=== PATIENT | female | born 1990 | race Caucasian/White ===

== ENCOUNTER 2017-06-15 08:57 | Emergency (ER) | END 2017-06-15 10:41 | disposition home or self-care (01) ==

== ENCOUNTER → 2018-12-11 | Outpatient (CLI) | payer MEDICAID ==
[~2018-12-11] MED LIST: AZIT250T PO; FERR-18 PO; FERR27TA; FLUT9.9S NASAL; IBUP-1542 PO; PREN1TAB49; PREN1TAB49 PO; PSEU120T12 PO
== END | disposition home or self-care (01) ==
LOC: RAD 08:46
PROVIDERS: ATTEND Obstetrics & Gynecology
DX: O26.899 Other specified pregnancy related conditions, unspecified trimester (principal); Z3A.00 Weeks of gestation of pregnancy not specified; R76.11 Nonspecific reaction to tuberculin skin test without active tuberculosis
CPT/HCPCS: 71045